=== PATIENT | female | born 1985 | race African-American/Black ===

== ENCOUNTER 2017-08-22 18:24 | Emergency (ER) | payer OTHER ==
[~2017-08-22] VITALS: Ht 172.7 cm; Wt 59.0 kg
[~2017-08-22 18:24] MED LIST: NKM
[2017-08-22 18:45] VITALS: BP 133/72
[2017-08-22] MEDS ORDERED: AMOXICILLIN500 MG ORAL (19:01)
[2017-08-22 19:03] VITALS: BP 133/72
--- NOTE | 2017-08-22 19:23 | Emergency Room Report ---
History of Present Illness General Chief Complaint: Abdominal Pain Present Illness HPI Patient presented for sore throat.The patient stated that she been having sore throat for approximately 2 weeks. Patient additionally reports having some lower abdominal discomfort which was onset after she finished her menses. The patient denied being .. The patient denies any dysuria or vaginal discharge. The patient reports having subjective fever and chills. Patient states she does not have a doctor. Allergies: Coded Allergies: No Known Allergies (Unverified , 04/21/13) Patient History Past Medical History: see triage record Reviewed Nursing Documentation: PMH: Agreed; PSxH: Agreed Nursing Documentation-PMH Hx Cardiac Problems: No Hx Hypertension: No Hx Pacemaker: No Hx Asthma: No Hx COPD: No Hx Diabetes: No Hx Cancer: No Hx Gastrointestinal Problems: No Hx Dialysis: No Hx Neurological Problems: No Hx Cerebrovascular Accident: No Hx Seizures: No Review of Systems All Other Systems: negative except mentioned in HPI Physical Exam Vital Signs Date Time Temp Pulse Resp B/P (MAP) Pulse Ox O2 Delivery O2 Flow Rate FiO2 08/22/17 18:34 98.4 93 20 133/72 99 Room Air 98.4 General Appearance: well appearing, no apparent distress, alert, GCS 15 Head: normocephalic, atraumatic ENT: hearing grossly normal, normal voice, pharyngeal erythema, other - lymphadenopathy to right side of neck Neck: full range of motion, supple Respiratory: no respiratory distress, speaking full sentences Cardiovascular #1: normal peripheral pulses, regular rate, rhythm, no edema Gastrointestinal: normal inspection, normal bowel sounds, non tender, soft, no mass Musculoskeletal: normal inspection, no calf tenderness Neurologic: normal inspection, alert, oriented x3, responsive, 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 Differential diagnosis included but was not limited to meningitis, exudative tonsillitis, retropharyngeal abscess, epiglottitis, strep pharyngitis. Patient has a benign exam and does not appear to require any further imaging or laboratory testing at this time. The patient was given prescription for amoxicillin. Patient appears to have an exudative pharyngitis with tender lymphadenopathy in the right side of her neck. The patient was given prescription for oral antibiotics. The patient is advised to seek primary care if she wanted further evaluation and workup. Last Vital Signs Date Time Temp Pulse Resp B/P (MAP) Pulse Ox O2 Delivery O2 Flow Rate FiO2 08/22/17 19:03 98.0 82 20 133/72 99 Room Air 98.0 Status: improved Disposition: HOME, SELF-CARE Condition: Stable Scripts Amoxicillin* (AMOXIL*) 500 Mg Capsule 500 MG ORAL THREE TIMES A DAY, #21 CAP Prov: Jp Farooq MD 08/22/17 Patient Instructions: Abdominal Pain, Adult Jp Farooq MD August 22, 2017 19:23
== END 2017-08-22 19:03 | disposition home or self-care (01) ==
LOC: EMR 18:59
DX: J02.9 Acute pharyngitis, unspecified (principal)
CPT/HCPCS: 99283